=== PATIENT | male | born 1995 | race African-American/Black ===

== ENCOUNTER 2016-11-13 21:26 | Emergency (ER) | payer OTHER ==
[~2016-11-13] VITALS: Ht 165.1 cm; Wt 59.0 kg
[2016-11-13 21:55] VITALS: BP 126/63
--- NOTE | 2016-11-13 22:08 | PHYS DOC ---
Past Medical History Past Medical History: No Pertinent History Past Surgical History: No Surgical History Alcohol Use: None Drug Use: Marijuana Adult General Chief Complaint Chief Complaint: LOWER BACK PAIN OR INJURY HPI HPI Patient is a 20 year old male who presents with with half week of bilateral low back pain since starting a new job and helping a family removed. Pain is achy, constant, worse with range of motion. He denies nausea or vomiting, fever or chills, abdominal pain, dysuria, hematuria, injury. He denies numbness, tingling, weakness, saddle anesthesia, bowel or bladder dysfunction. Review of Systems Review of Systems Constitutional: Denies fever or chills [] Eyes: Denies change in visual acuity, redness, or eye pain [] HENT: Denies nasal congestion or sore throat [] Respiratory: Denies cough or shortness of breath [] Cardiovascular: No additional information not addressed in HPI [] GI: Denies abdominal pain, nausea, vomiting, bloody stools or diarrhea [] : Denies dysuria or hematuria [] Musculoskeletal: Denies joint pain [] Integument: Denies rash or skin lesions [] Neurologic: Denies headache, focal weakness or sensory changes [] Endocrine: Denies polyuria or polydipsia [] Physical Exam Physical Exam Constitutional: Well developed, well nourished, no acute distress, non-toxic appearance. [] HENT: Normocephalic, atraumatic, bilateral external ears normal, oropharynx moist, nose normal. [] Eyes: PERRLA, EOMI. [] Neck: Normal range of motion, supple. [] Cardiovascular:Heart rate regular rhythm [] Lungs & Thorax: Bilateral breath sounds clear to auscultation [] Abdomen: Bowel sounds normal, soft, no tenderness, no masses, no pulsatile masses. [] Skin: Warm, dry, no erythema, no rash. [] Back: No midline spinal tenderness, no CVA tenderness. Has bilateral lumbar paraspinal tenderness, left greater than right [] Extremities: No tenderness, ROM intact, no edema. [] Neurologic: Alert and oriented X 3, normal motor function, normal sensory function, no focal deficits noted. [] Psychologic: Affect normal, judgement normal, mood normal. [] Course & Med Decision Making Course & Med Decision Making Discussed supportive care. Return precautions given. He understands and agrees with plan. Dragon Disclaimer Dragon Disclaimer This electronic medical record was generated, in whole or in part, using a voice recognition dictation system. Departure Departure Impression: Primary Impression: Low back pain Disposition: HOME, SELF-CARE Condition: STABLE Referrals: NO PCP (PCP) Patient Instructions: Back Pain, Adult, [id number] Additional Instructions: Take ibuprofen 400 mg 3-4 times per day as needed for pain. Follow-up with your primary care doctor. Return for any concerns. Problem Qualifiers Primary Impression: Low back pain Chronicity: acute Back pain laterality: bilateral Sciatica presence: without sciatica Qualified Codes: M54.5 - Low back pain Vinicius COOK MD Nov 13, 2016 22:08
[2016-11-13] MEDS ORDERED: IBUPROFEN 400 MG TABLET. PO ONE (22:30)
[2016-11-13] MEDS ORDERED: DEXAMETHASONE 4 MG TABLET PO ONE (22:30)
== END 2016-11-13 22:16 | disposition home or self-care (01) ==
LOC: ER 21:26
DX: M54.5 Low back pain (principal); F12.10 Cannabis abuse, uncomplicated
CPT/HCPCS: 99283; J8540